=== PATIENT | female | born 1930 | race Caucasian/White ===

== ENCOUNTER 2019-11-02 09:47 | Emergency (ER) | payer BC, MEDICAID ==
[~2019-11-02] VITALS: Ht 152.4 cm; Wt 63.5 kg
[2019-11-02 09:55] VITALS: BP_SYST 118
[2019-11-02] MEDS ORDERED: cefTRIAXone 1 GM in LIDOCAINE 1%, 20 ML MDV 2.1 ML IM ONE (10:15)
== END 2019-11-02 10:27 | disposition home or self-care (01) ==
LOC: SED 09:47
DX: J20.9 Acute bronchitis, unspecified (principal); I10 Essential (primary) hypertension; E78.00 Pure hypercholesterolemia, unspecified
CPT/HCPCS: 96372; 99283; J0696; J2001